=== PATIENT | male | born 1950 | race Caucasian/White ===

== ENCOUNTER 2019-06-27 17:53 | Emergency (ER) | payer OTHER ==
[~2019-06-27] VITALS: Ht 177.8 cm; Wt 56.2 kg
== END 2019-06-28 13:10 | disposition home or self-care (01) ==
LOC: ER 17:53
DX: K29.60 Other gastritis without bleeding (principal); R42 Dizziness and giddiness; R06.02 Shortness of breath

== ENCOUNTER 2022-02-11 21:13 | Inpatient (IN) | payer OTHER ==
[~2022-02-11] VITALS: Ht 177.8 cm; Wt 55.3 kg
--- NOTE | 2022-02-11 21:23 | NUR ---
SE RECIBE A PTE ALERTA Y ORIENTADO X3 POR MEDIO DE AMBULANCIA. PTE REFIERE DOLOR ABDOMINAL Y NAUSEAS DESDE HACE DOS GARCIA.
--- NOTE | 2022-02-11 21:50 | NUR ---
PTE ALERTA Y ORIENTADO X3. SE REALIZAN MUESTRAS DE LAB HA ORDEN MEDICA Y BAJO MEDIDAS ASEPTICAS.
--- NOTE | 2022-02-12 02:28 | NUR ---
SE LE DA MEDICAMENTO HA ORDENADOS POR MS.SMALL POTTS . SE NOTIFICA A MS GALAVIZ Z TERAPISTA RESPIRATORIO.SOBRE EL TRATAMIENTO.
--- NOTE | 2022-02-12 07:20 | NUR ---
SE RECIBE PTE EN EL AREA DE OBSERVACION EN LAUREN CON BARANDAS ELEVADA Y TIMBRE ACCESIBLE, PTE NO PRESENTA DOLOR AL MOMENTO PTE SE MANTIENE EN OBSERVACION Y BAJO TRATAMIENTO EN ESPERA DE RESULTADO DE LABORATORIO.
== END 2022-02-17 22:23 | disposition home or self-care (01) | DRG 194 ==
LOC: ER 21:13 → MEDJ 02-12 12:41
PROVIDERS: ADMIT Internal Medicine; ATTEND Internal Medicine
PROC: BW28ZZZ Computerized Tomography (CT Scan) of Head (ICD-10-PCS; principal; 2022-02-12)
PROC: 3E0F7GC Introduction of Other Therapeutic Substance into Respiratory Tract, Via Natural or Artificial Opening (ICD-10-PCS; 2022-02-12)
DX: J10.1 Influenza due to other identified influenza virus with other respiratory manifestations (principal); N17.8 Other acute kidney failure; E86.0 Dehydration; K29.70 Gastritis, unspecified, without bleeding; R42 Dizziness and giddiness; Z20.822 Contact with and (suspected) exposure to COVID-19

== ENCOUNTER 2022-05-16 13:48 | Emergency (ER) | payer OTHER ==
[~2022-05-16] VITALS: Ht 167.6 cm; Wt 52.2 kg
[2022-05-16] MEDS ORDERED: FLUCONAZOLE200 MG PO (16:34)
[2022-05-16] MEDS ORDERED: ANTIFUNGAL113 GM TOP (16:34)
== END 2022-05-16 17:39 | disposition home or self-care (01) ==
LOC: ER 13:48 → EMR PED 13:54 → ER 13:54
DX: N48.1 Balanitis (principal)

== ENCOUNTER 2022-10-22 09:25 | Emergency (ER) | payer OTHER ==
[~2022-10-22] VITALS: Ht 177.8 cm; Wt 49.9 kg
[~2022-10-22 09:25] MED LIST: ANTIFUNGAL113 GM TOP; FLUCONAZOLE200 MG PO
== END 2022-10-22 16:04 | disposition home or self-care (01) ==
LOC: ER 09:25
DX: K59.00 Constipation, unspecified (principal); R10.84 Generalized abdominal pain